=== PATIENT | female | born 1950 | race Caucasian/White ===

== ENCOUNTER → 2021-04-18 | Outpatient (CLI) | payer MEDICARE ==
[~2021-04-18] VITALS: Ht 165.1 cm; Wt 75.9 kg
[~2021-04-18] MED LIST: ASPIRIN 81M81 MG/TA2 PO; ASPIRIN E.C. 8181 MG PO; CLARITIN 1010 MG/TAB PO; FOSAMAX 70MG TA70 MG PO; LEXAPRO20 MG PO; LIPITOR20 MG PO; MULTIPLE VITAMI1 TA5 PO; NORCO 325 MG-51 TAB PO; TOPROL XL 25MG25 MG PO; ZESTRIL30 MG PO
[2021-04-18 13:27] VITALS: BP 172/62; PULSE 66
[2021-04-18 14:46] VITALS: BP 166/75; PULSE 64
--- NOTE | 2021-04-18 14:50 | NUR ---
pt out to car per ambulation. Denies complaints at this time.
== END ==
LOC: COL.RAD 12:54
DX: C50.919 Malignant neoplasm of unspecified site of unspecified female breast (principal)

== ENCOUNTER 2021-07-12 06:56 | Day surgery (SDC) | payer MEDICARE ==
[~2021-07-12] VITALS: Ht 165.1 cm; Wt 65.4 kg
[~2021-07-12 06:56] MED LIST changes: -ASPIRIN E.C. 8181 MG PO; -CLARITIN 1010 MG/TAB PO; -NORCO 325 MG-51 TAB PO
[2021-07-12] MEDS ORDERED: ASPIRIN E.C. 8181 MG PO (08:20)
[2021-07-12] MEDS ORDERED: CLARITIN 1010 MG/TAB PO (08:21)
[2021-07-12 08:37] VITALS: BP 128/49; PULSE 58; TEMP 98.2
[2021-07-12] MEDS ORDERED: NORCO 325 MG-51 TAB PO (15:05)
[2021-07-12 15:30] VITALS: BP 117/57; PULSE 64; TEMP 98.3
--- NOTE | 2021-07-12 15:30 | NUR ---
Pt returns to [facility] from PACU, awake and alert. O2/2L/NC in place. Pt requests a muffin and water and reports that she would like to go home. Will continue to monitor and wean off oxygen. Call light in reach. Naima notified and reports she is in the parking lot.
[2021-07-12 15:45] VITALS: BP 121/53; PULSE 65
--- NOTE | 2021-07-12 15:45 | NUR ---
Pt tolerates her muffin and water well, would like to taken a pain medication for her ride home, minimal discomfort to port site. No nausea, given per orders. O2 removed at 1540 and O2 sats >90%. Call light in reach.
[2021-07-12 16:00] VITALS: BP 118/48; PULSE 64
--- NOTE | 2021-07-12 16:00 | NUR ---
O2 sats 88% pt sitting up awake and alert and doing well, denies shortness of breath. Pulse ox moved to her toe, fingers cold and sats 94%. Lung sounds clear and pt reports she feels well and continues to say she wants to go home. Pt ambulates to the bathroom and voids without difficulty, discharge instructions provided and understanding verbalized, IV discontinued. Pt taken out via wheelchair by HARISH Cantor at 1620.
== END 2021-07-12 16:20 | disposition home or self-care (01) ==
LOC: COL.RAD 06:56 → SDCO 06:56 → COL.RAD 07:30 → SDCO 12:30
DX: C50.412 Malignant neoplasm of upper-outer quadrant of left female breast (principal); Z17.1 Estrogen receptor negative status [ER-]; E78.5 Hyperlipidemia, unspecified; I10 Essential (primary) hypertension; F41.9 Anxiety disorder, unspecified; F32.A Depression, unspecified; M81.8 Other osteoporosis without current pathological fracture; Z92.21 Personal history of antineoplastic chemotherapy; Z79.899 Other long term (current) drug therapy; Z79.83 Long term (current) use of bisphosphonates; Z79.82 Long term (current) use of aspirin
CPT/HCPCS: A4648; A9541; J0690; J1100; J1885; J2250; J2405; J2704; J3010; J7120